=== PATIENT | female | born 1965 | race Caucasian/White ===

== ENCOUNTER → 2017-05-02 | Day surgery (SDC) | payer BC ==
[~2017-05-02] MED LIST: AMITIZA8 MCG PO; CALCIUM CITRATE; CENTRUM; SIMVASTATIN20 MG PO; ZOCOR20 MG
--- NOTE | ~2017-05-02 | OR ---
Unit #: [id number] #: [id number] Patient: ARIES CASSIDY [id number] [address] [place], [place] [address] [id number] O MR#: [id number] NAME: ARIES CASSIDY ROOM: Date of Procedure: 05/02/2017 Admission Date: 05/02/2017 Surgeon: Soham Alfred M.D. : 1965 Attending Physician: Soham Alfred M.D. Primary Care Physician: Sarah Gutierrez M.D. OPERATIVE REPORT PREOPERATIVE DIAGNOSES Colorectal cancer screening in an average-risk patient. The patient apparently had an attempted colonoscopy about 7 years ago and was told that she has "twisted colon" and that examination was not possible. At that time, she had a barium enema to supplement the examination. She has come for elective colonoscopy today. PROCEDURE PERFORMED Colonoscopy up to cecum and terminal ileum with excellent preparation and good visualization. POSTOPERATIVE DIAGNOSES 1. The patient had 2 sessile polyps, one each in the cecum adjacent to appendiceal orifice and the second one in the proximal ascending colon. Both were sessile about 5 to 6 mm each and were removed using snare polypectomy. 2. Rest of examination up to cecum and terminal ileum were normal. The quality of the prep was excellent. RECOMMENDATIONS Follow up the results of polyp histology and repeat colonoscopy in 5 years. SEDATION USED MAC. DESCRIPTION OF PROCEDURE Following detailed explanation of the potential risks and complications of a colonoscopy, namely perforation, bleeding, and complications related to sedation, the patient was brought to GI lab and laid in the left lateral decubitus position. A digital rectal examination was performed, which was normal. Lubricated tip of the Olympus video colonoscope was inserted through the anus and advanced under direct vision. The scope was advanced and passed up to sigmoid into descending colon. No diverticula were noted in this area. The scope tip was then navigated all the way up to cecum with visualization of the ileocecal valve and the appendiceal orifice. Preparation was excellent with good visualization and photodocumentation was obtained. Last few inches of the terminal ileum also visualized after intubation of the ileocecal valve and appeared normal. Successive segments of the colonic mucosa were examined upon withdrawal. Two polyps noted, one each in the cecum and ascending colon. The cecal polyp was adjacent to appendiceal orifice. It was removed using snare polypectomy. The ascending colon polyp was also removed using snare polypectomy. The Unit #: [id number] #: [id number] Patient: ARIES CASSIDY polyps ranged in size from 5 to 7 mm each. No additional polyps noted. The patient did not have any diverticulosis nor any hemorrhoids. The scope was then withdrawn. The patient returned to recovery area. She tolerated the procedure without any postprocedure complications. Dictated by... Pool Lambert/rufino TD: 05/02/2017 14:01 JOB #: [id number] OPERATIVE REPORT Page 1 of 1 X Soham Alfred MD X PROCEDURE OPERATIVE NOTE
== END | disposition home or self-care (01) ==
LOC: COPS 09:57
DX: Z12.11 Encounter for screening for malignant neoplasm of colon (principal); D12.0 Benign neoplasm of cecum; D12.2 Benign neoplasm of ascending colon; Z79.899 Other long term (current) drug therapy
CPT/HCPCS: 88305